=== PATIENT | male | born 1990 | race Caucasian/White ===

== ENCOUNTER 2023-02-02 13:49 | Emergency (ER) | payer OTHER ==
[2023-02-02] MEDS ORDERED: Sodium Chloride 0.9% 10 ML Syringe FLUSH PRN (14:23)
[2023-02-02] MEDS ORDERED: Sodium Chloride 0.9% 2.5 ML Syringe FLUSH PRN (14:23)
[2023-02-02] MEDS ORDERED: Acetaminophen/HYDROcodone 325-10 MG Tab PO ONE (14:36)
[2023-02-02] MEDS ORDERED: Ibuprofen 600 MG Tab PO ONE (14:37)
[2023-02-02 14:45] LABS: BASOPHILS ABSOLUTE AUTO 0.1 K/uL (0.0-0.1); BASOPHILS PERCENT AUTO 0.5 % (0.0-1.5); EOSINOPHILS ABSOLUTE AUTO 0.1 K/uL (0.0-0.7); HEMATOCRIT 40.9 % (38.0-50.0); LYMPHOCYTES ABSOLUTE AUTO 2.7 K/uL (0.6-2.4); LYMPHOCYTES PERCENT AUTO 27.9 % (16.0-40.0); MEAN CORPUSCULAR HEMOGLOBIN 30.2 pg (27.0-32.0); MEAN CORPUSCULAR HGB CONC 34.2 g/dL (31.0-37.0); MEAN CORPUSCULAR VOLUME 88.3 fL (80.0-98.0); MONOCYTES ABSOLUTE AUTO 0.5 K/uL (0.0-0.8); MONOCYTES PERCENT AUTO 5.4 % (0.0-15.0); NEUTROPHILS ABSOLUTE AUTO 6.2 K/uL (1.4-5.7); NEUTROPHILS PERCENT AUTO 65.2 % (48.0-80.0); NRBC ABSOLUTE 0 K/uL; PLATELET COUNT,PLT 308 K/uL (150-400); RED BLOOD CELL COUNT 4.63 M/uL (4.50-5.90); WHITE BLOOD CELL COUNT,WBC 9.58 K/uL (4.0-11.0)
[2023-02-02 15:04] LABS: INR 1.03 (0.86-1.11)
[2023-02-02 15:05] LABS: A/G RATIO 0.7 (0.9-1.6); ALBUMIN 3.2 g/dL (3.4-5.0); BILIRUBIN TOTAL 1.2 mg/dL (0.2-1.0); CALCIUM 9.1 mg/dL (8.5-10.1); CARBON DIOXIDE,CO2 27.7 mmol/L (21.0-32.0); EST CRCL DRUG DOSING (CG) 118.56 mL/min; POTASSIUM,K 3.6 mmol/L (3.5-5.1); PROTEIN TOTAL,TP 7.6 g/dL (6.4-8.2)
[2023-02-02] MEDS ORDERED: Silver Sulfadiazine 1% Crm 400 GM Jar TOP STA (15:52)
== END 2023-02-02 16:38 | disposition home or self-care (01) ==
LOC: MW.ED 13:49
DX: T24.232A Burn of second degree of left lower leg, initial encounter (principal); F17.210 Nicotine dependence, cigarettes, uncomplicated; Z79.899 Other long term (current) drug therapy; X08.8XXA Exposure to other specified smoke, fire and flames, initial encounter; Y92.812 Truck as the place of occurrence of the external cause
CPT/HCPCS: 16020; 36415; 71045; 73610; 73630; 80053; 85025; 85610; 99283; A9270; J3490

== ENCOUNTER 2023-02-03 08:58 | Day surgery (SDC) | payer OTHER ==
[~2023-02-03 08:58] MED LIST: Albuterol 0.083% 2.5 MG/3 ML Neb Soln NEB PRN; Lactated Ringers 1,000 ML IV SCH; Metoclopramide 10 MG/2 ML SDV IVPUSH PRN; Morphine 2 MG/ML SYRINGE IVPUSH PRN; Naloxone 0.4 MG/ML SDV IVPUSH PRN; Ondansetron 4 MG/2 ML SDV IVPUSH PRN; droPERidol 5 MG/2 ML SDV IVPUSH PRN; fentaNYL 50 MCG/ML SDV IVPUSH PRN
[2023-02-03] MEDS ORDERED: fentaNYL 100 MCG/2 ML SDV IVPUSH ONE (09:40)
[2023-02-03] MEDS ORDERED: Propofol 200 MG/20 ML SDV ONE ×4 (10:38→11:40)
[2023-02-03] MEDS ORDERED: Dexmedetomidine 200 MCG/2 ML SDV ONE (10:40)
[2023-02-03] MEDS ORDERED: fentaNYL 100 MCG/2 ML SDV ONE ×2 (10:40→11:36)
[2023-02-03] MEDS ORDERED: Lidocaine 1% 5 ML VIAL ONE ×2 (10:40→13:17)
[2023-02-03] MEDS ORDERED: Magnesium Sulfate (4.06 MEQ/ML) 5 GM/10 ML SDV ONE (11:32)
[2023-02-03] MEDS ORDERED: Midazolam 1 MG/ML 2 ML SDV ONE (11:36)
[2023-02-03] MEDS: HYDROmorphone 1 MG/ML Syringe IVPUSH PRN ×3 (12:25→13:08)
[2023-02-03] MEDS ORDERED: Ketorolac 30 MG/ML SDV ONE (13:10)
[2023-02-03] MEDS ORDERED: Acetaminophen/HYDROcodone 325-10 MG Tab PO PRN (13:16)
[2023-02-03] MEDS ORDERED: diphenhydrAMINE 50 MG/ML SDV IVPUSH PRN (13:16)
[2023-02-03] MEDS ORDERED: Sodium Chloride 0.9% 2.5 ML Syringe FLUSH PRN (13:16)
[2023-02-03] MEDS ORDERED: Bisacodyl 5 MG Tab PO PRN (13:16)
[2023-02-03] MEDS ORDERED: Sodium Chloride 0.9% 20 ML SDV IV PRN (13:16)
[2023-02-03] MEDS ORDERED: Ondansetron 4 MG/2 ML SDV IVPUSH PRN (13:16)
[2023-02-03] MEDS ORDERED: Sodium Chloride 0.9% 10 ML Syringe FLUSH PRN (13:16)
[2023-02-03] MEDS ORDERED: Ropivacaine 0.5% 5 MG/ML 30 ML SDV ONE (13:17)
[2023-02-03] MEDS ORDERED: Lactated Ringers 1,000 ML IV SCH (13:30)
[2023-02-03] MEDS: Ketorolac 30 MG/ML SDV IVPUSH SCH (18:30)
[2023-02-04] MEDS: Ketorolac 30 MG/ML SDV IVPUSH SCH ×2 (01:36→07:02)
[2023-02-04] MEDS: HYDROmorphone 1 MG/ML Syringe IVPUSH PRN ×2 (05:50→08:44)
[2023-02-04] MEDS ORDERED: Enoxaparin 40 MG/0.4 ML Syringe SUBCUT SCH (09:00)
== END 2023-02-04 09:35 | disposition home or self-care (01) ==
LOC: MW.SDS 08:58 → MW.MS 14:15 → MW.SDS 02-04 09:35
PROVIDERS: ATTEND Surgery
DX: S82.832A Other fracture of upper and lower end of left fibula, initial encounter for closed fracture (principal); T24.202A Burn of second degree of unspecified site of left lower limb, except ankle and foot, initial encounter; T25.222A Burn of second degree of left foot, initial encounter; T31.0 Burns involving less than 10% of body surface; Z79.2 Long term (current) use of antibiotics; F17.210 Nicotine dependence, cigarettes, uncomplicated; V89.2XXA Person injured in unspecified motor-vehicle accident, traffic, initial encounter
CPT/HCPCS: 16025; A9270; J0131; J1170; J1650; J1885; J2250; J2704; J2795; J3010; J3475; J7120; 00400; 64450; J3490